=== PATIENT | female | born 1975 | race Caucasian/White ===

== ENCOUNTER 2017-04-30 01:03 | Emergency (ER) | payer OTHER ==
[~2017-04-30] VITALS: Ht 167.6 cm; Wt 90.3 kg
[~2017-04-30 01:03] MED LIST: ACETAMINOPHEN500 M4 PO; CLARITIN10 MG PO; CYCLOBENZAPRINE10 M1 PO; MECLIZINE HCL25 M2 PO; MECLIZINE HCL25 MG PO; MULTIVITAMINS1 EAC9 PO; NAPROXEN375 MG PO; OXYCODONE HCL5 M2 PO; PREDNISONE10 M2 PO; ROBAXIN500 M1 PO; TRANSDERM-SCOP1 EACH TOP; TYLENOL TAB 32325 MG PO; VALIUM5 M2 PO; ZOFRAN ODT4 M1 SL
--- NOTE | 2017-04-30 01:08 | ED GENERAL ADULT ---
History of Present Illness General Chief Complaint: General Adult Stated Complaint: NAUSEA, VERTIGO?? Source: patient Exam Limitations: no limitations Vital Signs & Intake/Output Vital Signs & Intake/Output Vital Signs Date Time Temp Pulse Resp B/P B/P Pulse O2 O2 Flow FiO2 Mean Ox Delivery Rate 04/30 0125 97 Room Air 04/30 0115 96.9 90 20 115/79 99 Room Air Allergies Coded Allergies: NO KNOWN ALLERGIES (11/17/10) Reconcile Medications Acetaminophen 500 MG TABLET 2-3 TAB PO PRN PAIN (Reported) Diazepam (Valium) 5 MG TABLET 1 TAB PO BIDP PRN vertigo Meclizine HCl 25 MG TABLET 1 TAB PO TIDPRN vertigo Meclizine HCl 25 MG TABLET 1 TAB PO TIDPRN PRN vertigo Meclizine HCl 25 MG TAB.CHEW 1-2 TAB PO DAILY PRN dizziness Multiple Vitamin (Multivitamins) 1 EACH TABLET 1 TAB PO DAILY SUPPLEMENT ( Reported) Ondansetron (Zofran Odt) 4 MG TAB.RAPDIS 1 TAB SL TID PRN nausea Ondansetron (Zofran Odt) 4 MG TAB.RAPDIS 1 TAB SL TID PRN nausea Scopolamine (Transderm-Scop) 1 MG/3 DAY PATCH.TD.3 1 PATCH TOP Q-3DAYS PRN NAUSEA, VERTIGO Scopolamine Hydrobromide (Transderm-Scop) 1.5MG/3DAY PATCH.TD.3 1 PAT TOP Q3D vertigo apply to the hairless area behind 1 ear at least 4 hours before effect is required; reapply every 3 days as needed Triage Nurses Notes Reviewed? yes Onset: Gradual Duration: hour(s): Timing: recent history Injury Environment: home Severity: moderate Modifying Factors: Improves With: rest. Worsens With: movement. Associated Symptoms: NAUSEA, VERTIGO HPI: 41YO woman h/o vertigo, presents with 1-2 hours of vertigo. She shares, "I was beginning to have the symptoms when I was mopping the floor.... Then, my child woke me up around midnight and I felt the room really spinning just like before. I feel nauseous too." She shares that she has no headache, chest pain, diaphoresis, syncopal type symptoms. She is otherwise well. Past History Travel History Traveled to [place] past 21 day No Medical History Any Pertinent Medical History? 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 No Review of Systems Review of Systems Constitutional: Reports: no symptoms. EENTM: Reports: no symptoms. Respiratory: Reports: no symptoms. Cardiovascular: Reports: no symptoms. GI: Reports: no symptoms. Genitourinary: Reports: no symptoms. Musculoskeletal: Reports: no symptoms. Skin: Reports: no symptoms. Neurological/Psychological: Reports: no symptoms. Hematologic/Endocrine: Reports: no symptoms. Immunologic/Allergic: Reports: no symptoms. All Other Systems: Reviewed and Negative Physical Exam Physical Exam General Appearance: well developed/nourished, mild distress Head: atraumatic, normal appearance Eyes: Bilateral: normal appearance, PERRL, EOMI. Ears, Nose, Throat: normal pharynx, normal ENT inspection Neck: normal inspection, supple, full range of motion Respiratory: normal breath sounds, chest non-tender, no respiratory distress, quiet respiration, lungs clear Cardiovascular: regular rate/rhythm Gastrointestinal: normal bowel sounds, soft, non-tender, no organomegaly Back: normal inspection, normal range of motion Extremities: normal inspection, normal capillary refill, normal range of motion, no edema Neurologic/Psych: no motor/sensory deficits, awake, alert, oriented x 3, normal gait, normal mood/affect, veritigo elicited with rapid head movement. Reflexes: 1+: bicep (R), bicep (L), knee (R), knee (L). Skin: intact, normal color, warm/dry Core Measures ACS in differential dx? No CVA/TIA Diagnosis: No Sepsis Present: No Sepsis Focused Exam Completed? No Progress Differential Diagnoses I considered the following diagnoses in my evaluation of the patient: vertigo vs other. Plan of Care: Current Medications Sig/Vijay Start time Last Medication Dose Stop Time Status Admin Meclizine HCl 25 MG ONCE ONE 04/30 0145 AC (Antivert) 04/30 014 Ondansetron HCl 4 MG ONCE ONE 04/30 144 AC (Zofran) 04/30 145 Scopolamine HBr 1 PAT ONE ONE 04/30 144 AC (Trans Derm Scop) 04/30 145 Initial ED EKG: none Departure Departure Disposition: HOME OR SELF CARE Condition: Stable Clinical Impression Primary Impression: Vertigo Referrals: Krish AMANDA,Hardik Jones (PCP/Family) Departure Forms: Customer Survey General Discharge Information Prescriptions: Current Visit Scripts Ondansetron (Zofran Odt) 1 TAB SL TID PRN nausea #10 TAB Ref 1 Meclizine HCl 1 TAB PO TIDPRN PRN vertigo #30 TAB Ref 1 Scopolamine (Transderm-Scop) 1 PATCH TOP Q-3DAYS PRN NAUSEA, VERTIGO #3 PAT Ref 1 Comments pt given scopolamine, zofran, meclizine... rx sent to pharmacy for same. Critical Care Note Critical Care Note Critical Care Time: non-applicable
[2017-04-30 01:15] VITALS: BP 115/79
[2017-04-30] MEDS ORDERED: MECLIZINE HCL25 MG PO (01:33)
[2017-04-30] MEDS ORDERED: TRANSDERM-SCOP1 EAC1 TOP (01:33)
[2017-04-30] MEDS ORDERED: ZOFRAN ODT4 M1 SL (01:33)
== END 2017-04-30 04:47 ==
LOC: ERH 01:03
DX: R42 Dizziness and giddiness (principal)
CPT/HCPCS: J2550; J3101

== ENCOUNTER 2017-05-06 06:26 | Emergency (ER) | payer OTHER ==
[~2017-05-06 06:26] MED LIST changes: +TRANSDERM-SCOP1 EAC1 TOP
--- NOTE | 2017-05-06 06:54 | ED AMS/SEIZURE/WEAK/DIZZY ---
History of Present Illness General Chief Complaint: General Adult Stated Complaint: MANY COMPLAINTS Source: patient, family, old records Exam Limitations: no limitations Vital Signs & Intake/Output Vital Signs & Intake/Output Vital Signs Date Time Temp Pulse Resp B/P B/P Pulse O2 O2 Flow FiO2 Mean Ox Delivery Rate 05/06 0635 98.4 93 20 115/82 98 Allergies Coded Allergies: NO KNOWN ALLERGIES (11/17/10) Triage Note: PER PT SEEN LAST WEEK FOR VERTIGO TOOK MY LAST DOSE OF VERTIGO MEDICATION ON FRIDAY, YESTERDAY VOMITTED X 1 TOOK THE NAUSEA PRN MED, BUT RT SIDE OF HEAD FEELS HEAVY, LIKE BEFORE AND I AM NAUSEOUS, STILL, LYING ON TRIAGE DESK ,NO FEVERS SCHEDULED TO SEE DR ALVA AT 3 PM BUT TOO SICK TO WAIT. Triage Nurses Notes Reviewed? yes : No Patient currently breastfeeds: No HPI: Patient presents with a room spinning dizziness, a pressure sensation in the right side of her head, subjective fevers with shaking chills as well as nausea and vomiting. The symptoms started yesterday morning after bring her daughter to school. Patient states she pretty much spent the entire day on the couch. Patient does have a history of vertigo and took meclizine with slight relief. She vomited 3 times. Patient went to the bathroom this morning and had a lot of difficulty walking back to the bedroom so she comes in for evaluation. The pressure sensation is in the right side of her head. It increases when she lays on her right side but then decreases when she lays on her left side. She denies any sinus congestion. The pressure is constant. At its worse she rates it as a 4 out of 10. There is no blurry vision. (Ashely AMANDA,João Dong) Reconcile Medications Acetaminophen 500 MG TABLET 2-3 TAB PO PRN PAIN (Reported) Meclizine HCl 25 MG TABLET 1 TAB PO TIDPRN PRN dizziness Multiple Vitamin (Multivitamins) 1 EACH TABLET 1 TAB PO DAILY SUPPLEMENT ( Reported) Ondansetron (Zofran Odt) 4 MG TAB.RAPDIS 1 TAB SL TID PRN nausea Scopolamine 1 MG/3 DAY PATCH.TD.3 1 PATCH TOP Q72 PRN dizziness (Glenn AMANDA,Dwayne) Past History Travel History Traveled to [place] past 21 day No Medical History Any Pertinent Medical History? 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 No (Ashely AMANDA,João Dong) Review of Systems Review of Systems Constitutional: Reports: see HPI, chills, fever. EENTM: Reports: see HPI. Respiratory: Reports: no symptoms. Cardiovascular: Reports: no symptoms. GI: Reports: see HPI, nausea, vomiting. Genitourinary: Reports: no symptoms. Musculoskeletal: Reports: no symptoms. Skin: Reports: no symptoms. Neurological/Psychological: Reports: see HPI. Hematologic/Endocrine: Reports: no symptoms. Immunologic/Allergic: Reports: no symptoms. All Other Systems: Reviewed and Negative (Ashely AMANDA,João Dong) Physical Exam Physical Exam General Appearance: well developed/nourished, alert, awake, anxious, moderate distress Head: atraumatic, normal appearance Eyes: Bilateral: PERRL, EOMI. Ears, Nose, Throat: normal pharynx, normal ENT inspection, hearing grossly normal Neck: normal inspection, supple, full range of motion Respiratory: normal breath sounds, chest non-tender, no respiratory distress, lungs clear Cardiovascular: regular rate/rhythm, normal peripheral pulses Gastrointestinal: normal bowel sounds, soft, non-tender, no organomegaly Back: normal inspection, normal range of motion Extremities: normal range of motion Neurologic/Psych: no motor/sensory deficits, awake, alert, oriented x 3, normal mood/affect Skin: intact, normal color, warm/dry Core Measures ACS in differential dx? No CVA/TIA Diagnosis No Sepsis Present: No Sepsis Focused Exam Completed? No (Ashely AMANDA,João Dong) Progress Differential Diagnosis: arrythmia, anemia, CVA/stroke, drug intoxication, electrolyte imbalance, labrynthitis, Meniere's disease Plan of Care: Orders Procedure Date/time Status Regular Diet 05/06 B Active RAPID VIRAL INFLUENZA A 01/30 0650 Complete URINALYSIS 05/06 649 Complete TSH REFLEX 05/06 649 Complete HUMAN BETA HCG SCREEN 05/06 649 Complete COMPREHENSIVE METABOLIC PANEL 05/06 649 Complete CBC WITHOUT DIFFERENTIAL 05/06 649 Complete Laboratory Tests 05/06/17 0753: Urinalysis LIGHT H, Urine Color STRAW, Urine Clarity HAZY H, Urine pH 6.5, Ur Specific Max 1.010, Urine Protein NEG, Urine Ketones TRACE H, Urine Nitrite NEG, Urine Bilirubin NEG, Urine Urobilinogen 0.2, Ur Leukocyte Esterase MOD H, Ur Microscopic SEDIMENT EXAMINED, Urine RBC 1-3, Urine WBC 10-15 H, Ur Epithelial Cells MANY H, Urine Bacteria MOD H, Urine Mucus RARE, Urine Hemoglobin TRACE-INTACT, Urine Glucose NEG 05/06/17649: Anion Gap 13, Estimated GFR > 60, BUN/Creatinine Ratio 13.8, Glucose 97, Calcium 9.0, Total Bilirubin 0.7, AST 22, ALT 27, Alkaline Phosphatase 67, Total Protein 7.3, Albumin 4.2, Globulin 3.1, Albumin/Globulin Ratio 1.4, TSH &T3 &Free T4 Intrp 1.490, Total Beta HCG NEGATIVE, CBC w Diff NO MAN DIFF REQ, RBC 4.55, MCV 89.0, MCH 29.5, MCHC 33.1, RDW 12.6, MPV 7.9, Gran % 71.8, Lymphocytes % 18.8 L , Monocytes % 6.7, Eosinophils % 1.2, Basophils % 1.5, Absolute Granulocytes 4.3 , Absolute Lymphocytes 1.1 L, Absolute Monocytes 0.4, Absolute Eosinophils 0.1, Absolute Basophils 0.1 Microbiology 05/06 649 NASOPHARYN: Influenza Virus A & B Rapid Smear - COMP Initial ED EKG: none Hand-Off Endorsed To: Dwayne Elizabeth MD Endorsed Time: 0700 Pending: labs, other (RE-EVAL) (Ashely AMANDA,João Dong) Comments: Less dizzy, still with headache. Comes in waves with sensation of someone pulling her leg. Tylenol and scopolamine ordered. (Dwayne Elizabeth MD) Departure Departure Condition: Stable Clinical Impression Primary Impression: Vertigo Departure Forms: Customer Survey General Discharge Information (Ashely AMANDA,João Dong) Departure Time of Disposition: 1100 Disposition: HOME OR SELF CARE Referrals: Marysol AMANDA,Angela Alas Call for ENT follow up Krish AMANDA,Hardik Jones (PCP/Family) Prescriptions: Current Visit Scripts Scopolamine 1 PATCH TOP Q72 PRN dizziness #4 PATCH Meclizine HCl 1 TAB PO TIDPRN PRN dizziness #30 TAB (Glenn AMANDA,Dwayne)
[2017-05-06 07:15] LABS: ABSOLUTE BASOPHIL COUNT 0.1 /CUMM (0.0-0.2); ABSOLUTE EOSINOPHIL COUNT 0.1 /CUMM (0.0-0.7); ABSOLUTE GRANULOCYTE CT 4.3 /CUMM (1.4-6.5); ABSOLUTE LYMPH COUNT 1.1 /CUMM (1.2-3.4); ABSOLUTE MONOCYTE COUNT 0.4 /CUMM (0.10-0.60); BASOPHIL % 1.5 % (0.0-2.0); EOSINOPHIL % 1.2 % (0-5); GRANULOCYTE % 71.8 % (42.2-75.2); HEMATOCRIT 40.5 % (37-47); MEAN CORPUSCULAR HGB 29.5 PG (27.0-31.0); MEAN CORPUSCULAR HGB CONC 33.1 G/DL (33.0-37.0); MEAN PLATELET VOLUME 7.9 FL (7.4-10.4); PLATELET COUNT 326 /CUMM (130-400); RBC DISTRIBUTION WIDTH 12.6 % (11.5-14.5); RED BLOOD CELL CT 4.55 /CUMM (4.20-5.40)
[2017-05-06] MEDS ORDERED: MECLIZINE HCL25 MG PO (11:12)
[2017-05-06] MEDS ORDERED: SCOPOLAMINE1 EAC1 TOP (11:12)
[2017-05-06 11:42] VITALS: BP 124/67
== END 2017-05-06 11:43 ==
LOC: ERH 06:26
PROVIDERS: Emergency Medicine
DX: R42 Dizziness and giddiness (principal); R50.9 Fever, unspecified; R11.2 Nausea with vomiting, unspecified
CPT/HCPCS: 81001; 87804; 87804-59; 96361; 96374; 96375; J0131; J1885; J2405